=== PATIENT | female | born 1960 | race Caucasian/White ===

== ENCOUNTER → 2017-01-21 | Outpatient (CLI) | payer BC ==
[~2017-01-21] MED LIST: CYMBALTA20 MG PO; DARVOCET N 1001 TAB PO; DEXILANT60 M1 PO; EPA-CON500 MG PO; KEFLEX500 MG PO; PRENATAL1 TA2 PO; SYNTHROID0.025 MG PO
[2017-01-21 08:08] LABS: ALBUMIN 4.1 gm/dl (3.1-4.5); ALKALINE PHOSPHATASE 59 U/L (45-117); BILIRUBIN, DIRECT 0.2 mg/dL (0.0-0.2); BUN 12 mg/dl (7-24); CHLORIDE 105 mmol/L (98-107); CHOLESTEROL 176 mg/dL (<200); FREE T4 1.55 ng/dl (0.76-1.46); HDL CHOLESTEROL 51 mg/dl (40-60); LDL CHOLESTEROL 108 mg/dL (9-159); POTASSIUM 4.2 mmol/L (3.5-5.1); SGOT/AST 19 IU/L (3-35); SGPT/ALT 27 U/L (12-78); SODIUM 141 mmol/L (136-145); TOTAL PROTEIN 7.6 gm/dL (6.4-8.2); TRIGLYCERIDES 86 mg/dl (<150); URIC ACID 5.3 mg/dL (2.6-6.0); VLDL CHOLESTEROL 17 mg/dL (6-40)
[2017-01-21 08:12] LABS: THYROID STIM HORMONE (HS) 0.188 uIU/ml (0.358-4.75)
== END | disposition home or self-care (01) ==
LOC: LAB 07:17
PROVIDERS: Internal Medicine
DX: E78.4 Other hyperlipidemia (principal); I10 Essential (primary) hypertension; E03.8 Other specified hypothyroidism; R73.02 Impaired glucose tolerance (oral); E79.0 Hyperuricemia without signs of inflammatory arthritis and tophaceous disease